=== PATIENT | female | born 1970 | race Native Hawaiian/Other Pacific Islander ===

== ENCOUNTER 2020-01-02 11:13 | Emergency (ER) | payer OTHER ==
[~2020-01-02] VITALS: Ht 160 cm; Wt 117.9 kg
[2020-01-02 11:26] VITALS: TEMP 98.9
[2020-01-02 11:59] LABS: PLATELET COUNT 294 K/uL (152-353)
[2020-01-02 12:19] LABS: POTASSIUM 3.8 mmol/L (3.6-5.2)
[2020-01-02 13:35] VITALS: BP 156/82
== END 2020-01-02 13:35 | disposition home or self-care (01) ==
LOC: ED 11:13
DX: I50.9 Heart failure, unspecified (principal); R60.0 Localized edema
CPT/HCPCS: 36415; 80053; 81000; 83880; 84484; 85027; 93005; 96374; 99284; J1940

== ENCOUNTER 2020-08-29 22:46 | Inpatient (IN) | payer OTHER ==
[~2020-08-29] VITALS: Ht 162.6 cm; Wt 136.8 kg
[2020-08-29 22:46] VITALS: BP 107/65; TEMP 98.6
[2020-08-29 23:00] VITALS: BP 113/68
[2020-08-29 23:15] LABS: PLATELET COUNT 253 K/uL (152-353)
[2020-08-29 23:22] LABS: SODIUM 137 mmol/L (136-145)
[2020-08-29 23:30] VITALS: BP 151/87
[2020-08-29] MEDS ORDERED: METF500T PO (23:43)
[2020-08-29] MEDS ORDERED: POT CL MICRO20 MEQ PO (23:44)
[2020-08-29] MEDS ORDERED: LABETALOL200 MG PO (23:46)
[2020-08-29] MEDS ORDERED: HYDRALAZINE50 MG PO (23:46)
[2020-08-29] MEDS ORDERED: NYST100016 TOP (23:47)
[2020-08-29] MEDS ORDERED: OMEPRAZOLE DR20 MG PO (23:48)
[2020-08-29] MEDS ORDERED: FURO40TA93 PO (23:49)
[2020-08-29] MEDS ORDERED: GRALISE300 MG PO (23:50)
[2020-08-29] MEDS ORDERED: AMOX875T8 PO (23:52)
[2020-08-30] VITALS (10 sets, daily range): BP systolic 113–138; BP diastolic 49–85; TEMP 97.6–99.4; Ht 162.6 cm; Wt 136.8 kg
--- NOTE | 2020-08-30 02:35 | NUR ---
08/30/2020 AT 0115 PATIENT ADMITTED TO ROOM #1123 VIA STRETCHER FROM THE ER. PATIENT IS ALERT AND ORIENTED X 4, SKIN WARM AND DRY AND IN NO ACUTE DISTRESS AT THIS TIME. PATIENT ORIENTED TO ROOM AND CALL SYSTEM AND VERBALIZES UNDERSTANDING. PATIENT STATES HER FAMILY CALLED EMS TONIGHT BECAUSE SHE "WAS EXTREMELY SHORT OF BREATH". SHE WEARS HOME OXYGEN VIA NASAL CANULA USUALLY AT 2LPM AND WHEN EMS ARRIVED AT HER HOME HER OXYGEN SATURATION WAS 58. PATIENT STATES SHES BEEN HAVING INCREASING SHORTNESS OF BREATH AND A NONE PRODUCTIVE COUGH X 2 OR 3 DAYS AND WAS SEEN BY HER PRIMARY CARE DOCTOR YESTERDAY AND GIVEN ANTIBIOTICS. PATIENTS AUNT BETTE MUÑOZ TAKES HER TO THE [facility] IN [facility] FOR HER PRIMARY CARE. PATIENT IS PRESENTLY WEARING THE VENTI MASK AT 50% AND HAS A SALINE LOCK 22G IN THE LEFT AC.
--- NOTE | 2020-08-30 02:52 | NUR ---
AT 0130 PATIENT PLACED ON TELEMTRY AND CONTINOUS PULSE OX AND RT AT BEDSIDE. PATIENT OXYGEN SATURATION READING 85-88% WITH VENTI MASK AT 50%. JOAN RESPIRATORY THERAPIST CALLED DR. JAMES IN THE ER AND ORDER WAS OBTAINED TO PLACE PATIENT ON HIGH FLOW. PATIENT PLACED ON HIGH FLOW OXYGEN AT 60 LPM AND 60% AND OXYGEN SATURATION NOW READING 92-96% AND NO ACUTE DISTRESS NOTED AT THIS TIME. CALL LIGHT WITHIN REACH. WILL CONTINUE TO MONITOR.
[2020-08-30 05:35] LABS: PLATELET COUNT 243 K/uL (152-353)
[2020-08-30 05:52] LABS: POTASSIUM 5.1 mmol/L (3.6-5.2)
--- NOTE | 2020-08-30 07:50 | NUR ---
INFORMED PER PCT PT'S BLOOD SUGAR WAS 507 WITH GLUCOMETER. WILL OBTAIN LAB VERIFICATION AND INFORM
--- NOTE | 2020-08-30 08:10 | NUR ---
DR REEDER INFORMED OF PT'S BS IOF 507. NEW ORDERS REC'D TO GIVE HUM R 15 UNITS SQ AT THIS TIME.
--- NOTE | 2020-08-30 09:00 | NUR ---
NUNU FROM LAB REPORTED BOTH OF PT'S BC WERE POSITIVE WITH E COLI WILL INFORM
--- NOTE | 2020-08-30 13:20 | NUR ---
CHECKED ON PATIENT AND SHE WAS SITTIN ON THE SIDE OF BED LOOKING OUT THE WINDOW. HER SATS WAS 92% AN HR 66.
--- NOTE | 2020-08-30 13:45 | NUR ---
DR REEDER IN ROOM AT MAKING ROUNDS. DR REEDER SPOKE WITH PT ABOUT RECIEVING REMDESEVIR IV PT STATED SHE WAS OK TO REC IT AND VERBALIZED UNDERSTANDING.
--- NOTE | 2020-08-30 14:45 | NUR ---
OBTAINED CONSENT FOR REMDESIVIR FROM PT AFTER MED WAS EXPLAINED TO PT BY DR. LILLI BURGOS RN. CONSENT SCANNED TO PHARMACY. AUBREY HELTON RN SPOKE WITH VAMSI FROM PHARM D. AWAITING APPROVAL.
--- NOTE | 2020-08-30 20:40 | NUR ---
ENTERED PATIENT'S ROOM AT THIS TIME. PATIENT RESTING QUIETLY IN BED IN LEFT SIDE LYING POSITION. HIGH FLOW NC INTACT @ 60L/MIN. RESPIRATIONS EVEN AND UNLABORED. 16FR ARRIETA INTACT AND DRAINING JOAN COLORED URINE TO BEDSIDE. 20G TO RT FA INFUSING NS @ 70ML/HR. 22G TO LEFT AC SALINE LOCKED. BOTH IV'S PATENT AND INTACT. NO ERYTHEMA OR SWELLING NOTED. PM MEDICATIONS GIVEN ALONG WITH INSULIN. BS 277 AT THIS TIME. PATIENT REPORTS OCCASIONAL ABDOMINAL SPASMS AND NAUSEA. ZOFRAN 4MG IV GIVEN PER MD ORDERS. BED LOCKED AND IN LOWEST POSITION. CALL LIGHT WITHIN EASY REACH.
[2020-08-31] VITALS: BP 120/68; TEMP 98.6
--- NOTE | 2020-08-31 03:00 | NUR ---
O2 SATURATION 86% AT THIS TIME. PATIENT HAS NC OFF. REPLACED NC AND O2 SATURATION IMPROVED TO 92%. PATIENT RESTING QUIETLY IN BED WITH EYES CLOSED. NAD NOTED. CALL LIGHT WITHIN EASY REACH.
[2020-08-31 04:00] VITALS: BP 132/77; TEMP 98.2
[2020-08-31 04:54] LABS: PLATELET COUNT 275 K/uL (152-353)
[2020-08-31 05:11] LABS: POTASSIUM 4.9 mmol/L (3.6-5.2)
[2020-08-31 08:00] VITALS: BP 134/102; TEMP 98.7
--- NOTE | 2020-08-31 08:00 | NUR ---
20G IV IN PLACE TO RFA INFUSING NS @ 70ML/HR, IV SITE INTACT WITH NO REDNESS, DRAINAGE OR SWELLING NOTED TO IV SITE. 22G SL IN PLACE TO LAC, FLUSHED WITH 10CC NS, WITH NO REDNESS, SWELLING OR DRAINAGE NOTED TO SITE.
--- NOTE | 2020-08-31 09:39 | NUR ---
DR. REEDER NOTIFIED OF BP AND BLOOD CULTURE RESULTS. NO NEW ORDERS AT THIS TIME.
--- NOTE | 2020-08-31 09:55 | NUR ---
PT SITTING UP ON SIDE OF BED TALKING TO FAMILY MEMBER ON THE PHONE. EFFORT OF BREATHING IS NOTED, BREATH SOUNDS DIMINISHED THROUGHOUT, INTERMITTENT COUGH WITH CLEAR SPUTUM NOTED. TELE # [address] WITH LEADS ATTACHED, CONTINUOUS PULSE OX IN PLACE, SATS A95% ON HIGH FLOW O2 60LPM/1OO% O2. PT VERY WINDED WITH EXERTION BUT IS ABLE TO RECOVER WELL WHEN SHE WEARS HIGH FLOW. BOWEL SOUNDS HYPOACTIVE, LAST BM REPORTED 08/28-WILL NOTIFY MD AND REQUEST STOOL SOFTENER. 16F ARRIETA IN PLACE DRAINING CLEAR, JOAN URINE TO GRAVITY. PT A/O X3. CALL LIGHT IN EASY REACH. WILL CONTINUE TO MONITOR.
--- NOTE | 2020-08-31 11:49 | NUR ---
FAMILY MEMBER IN TO ERGONOMICS ENGINEER PTS HOME MEDS.
[2020-08-31 12:00] VITALS: BP 131/69; TEMP 99
--- NOTE | 2020-08-31 12:11 | NUR ---
PT UP TO BEDSIDE VISITING WITH FAMILY MEMBER OUTSIDE WINDOW. NAD NOTED AT THIS TIME.
--- NOTE | 2020-08-31 13:30 | NUR ---
PT LAYING ON LEFT SIDE NAPPING, REMDESIVIR CONTINUES TO INFUSE W/O COMPLICATION OR SIGNS/SYMPTOMS OF ADVERSE REACTION.
[2020-08-31 16:00] VITALS: BP 146/76; TEMP 98.9
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
--- NOTE | 2020-08-31 18:36 | NUR ---
PT UP TO BEDSIDE EATING DINNER, REPORTS THAT HER TASTE IS OFF AND NOTHING REALLY TASTES GOOD.
[2020-08-31 19:56] VITALS: BP 124/74; TEMP 98.3
[2020-09-01 00:01] VITALS: BP 126/58; TEMP 98.5
--- NOTE | 2020-09-01 01:02 | NUR ---
PATIENT HAS BEEN GIVEN TEACHING ON KEEPING HER HIFLOW O2 IN HER NAIRES. PATIENT VERBALIZES UNDERSTANDING
--- NOTE | 2020-09-01 01:05 | NUR ---
PATIENT IS RESTING QUIETLY, BREATHING STEADY NON LABORED
--- NOTE | 2020-09-01 02:42 | NUR ---
PATIENT IS UP AT THE BEDSIDE, EATING
[2020-09-01 04:00] VITALS: BP 142/81; TEMP 98.6
[2020-09-01 05:31] LABS: PLATELET COUNT 290 K/uL (152-353)
[2020-09-01 05:47] LABS: POTASSIUM 4.6 mmol/L (3.6-5.2)
[2020-09-01 08:00] VITALS: BP 124/96; TEMP 98.5
--- NOTE | 2020-09-01 09:49 | NUR ---
PT SITTING ON BEDSIDE AFTER BREAKFAST, RESPIRATIONS SHALLOW, PRODUCTIVE COUGH WITH THICK, BAPTISTE SPUTUM NOTED,HIGH FLOW OXYGEN IN PLACE 50LPM/100%, PT MAINTAINS SATS ABOVE 93 WHEN AT REST. LUNG SOUNDS DIMINISHED THROUGHOUT. NS INFUSING TO 20G IN RFA AT 75ML/HR, SITE FREE FROM DRAINAGE, SWELLING AND REDNESS. 22G S/L IN LAC FLUSHED AND NOTED TO BE FREE FROM SWELLING, REDNESS OR DRAINAGE.
[2020-09-01 12:00] VITALS: BP 141/96; TEMP 98.7
--- NOTE | 2020-09-01 15:48 | NUR ---
ARRIETA CLAMPED FOR BLADDER TRAINING.
[2020-09-01 16:00] VITALS: BP 156/83; TEMP 98.3
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
[2020-09-01 20:15] VITALS: BP 145/71; TEMP 98.5
[2020-09-02 00:10] VITALS: BP 148/88; TEMP 98.6
--- NOTE | 2020-09-02 02:47 | NUR ---
SPO2 DECREASED TO 87%, INCREASED LITER FLOW TO 60 L/M. SPO2 90%
[2020-09-02 04:06] VITALS: BP 161/93; TEMP 98.5
--- NOTE | 2020-09-02 04:12 | NUR ---
DR GOMEZ ORDERED THE LOVENOX BE RETIMED FOR [address] GOMEZ ALSO ORDERED NS AT 125ML/HR. PATIENT RECIEVED TEACHING ON THE LOVENOX AND NOT TO SCRATCH AT THE SITE. PATIENT RECIEVED TEACHING WELL.
--- NOTE | 2020-09-02 04:27 | NUR ---
PATIENT STARTED COUGHING AND HER O2 SATURATION BEGAN TO DROP. I COACHED HER THROUGH SOME DEEP BREATHING BUT SHE STILL REMAINED IN THE MID 80S. RENATA FROM RESPIRATORY CAME IN AND EVALUATED HER. HE INCREESED HER 02 TO 100% ON 60l. PATIENT IS NOW SATING IN THE MID 90S
--- NOTE | 2020-09-02 04:32 | NUR ---
PATIENT HAS HAD A COMPLETE BED CHANGE
--- NOTE | 2020-09-02 05:00 | NUR ---
PATIENTS BP WENT OVER 150 SYSTOLIC. PATIENT WAS GIVEN PERSCRIBED HYDROLAZINE.
--- NOTE | 2020-09-02 05:24 | NUR ---
DECREASED LITER FLOW TO 45 L/M. SPO2 100%
[2020-09-02 05:43] LABS: POTASSIUM 4.5 mmol/L (3.6-5.2)
[2020-09-02 05:47] LABS: PLATELET COUNT 331 K/uL (152-353)
[2020-09-02 08:00] VITALS: BP 154/93; TEMP 98.1
--- NOTE | 2020-09-02 11:30 | NUR ---
IN PT RM TO ASSIST PT TO BSC, PT ABLE TO AMBULATE TO BSC INDEPENDENT BUT NEEDS HELP WITH THE TUBING AND WIRES CONNECTED TO HER, PT DESAT TO 82-89% WHILE AMBULATING TO BSC AND ON BSC DUE TO HIGH FLOW NOT STAYING IN NOSE PROPERLY WHEN MOVING, PT AMBULATED BACK TO BED SITTING UP ON SIDE OF BED, NAD NOTED, 02 SAT WENT BACK TO 95-99% ON HIGH FLOW, NO FURTHER NEEDS AT THIS TIME, CALL LIGHT WITHIN REACH, WILL CONTINUE TO MONITOR
[2020-09-02 12:00] VITALS: BP 162/94; TEMP 98.1
[2020-09-02 16:00] VITALS: BP 149/91; TEMP 98.7
--- NOTE | 2020-09-02 18:01 | NUR ---
INFORMED DR. MAGUIRE OF PT HAVING LARGE AMOUNT OF WATERY DIARRHEA AT THIS TIME, DR. MAGUIRE ORDERS TO D/C LUKAS, NO FURTHER ORDERS GIVEN
[2020-09-02 20:00] VITALS: BP 147/82; TEMP 98.3
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
--- NOTE | 2020-09-02 23:15 | NUR ---
PATIENT'S O2 SATURATION IN THE HIGH 80'S RANGE. PATIENT HAD NASAL CANNULA OFF. RE-ATTACHED AND PATIENT'S O2 LEVEL BACK TO WNL.
[2020-09-03 00:03] VITALS: BP 152/86; TEMP 98.7
--- NOTE | 2020-09-03 02:30 | NUR ---
PATIENT REQUESTING ASSISTANCE. SHE IS SITTING UP ON THE SIDE OF THE BED. SHE HAD URINATED ON THE BED AND THE FLOOR. SHE STATES, "I COULDN'T MAKE IT TO THE TOLIET." SHE STATES THAT THIS HAPPENS FREQUENTLY AT HOME WHERE SHE IS UNABLE TO MAKE IT TO THE BATHROOM IN TIME. SHE NORMALLY WEARS PULL-UPS. PCT CHANGED BED LINENS. PATIENT SITTING UP ON SIDE OF THE BED ON HER PHONE. HIGH FLOW NC INTACT. NAD NOTED. CALL LIGHT WITHIN REACH.
[2020-09-03 04:00] VITALS: BP 158/89; TEMP 98.6
--- NOTE | 2020-09-03 05:48 | NUR ---
PATIENT REQUESTING SOMETHING FOR H/A. TYLENOL 65OMG GIVEN. IV SITE TO RIGHT FA SLIGHTLY RED. NO SWELLING NOTED. NS INFUSING @ 50ML/HR. PT DOES NOT C/O PAIN AT THAT SITE. PATIENT SITTING UP ON SIDE OF BED ON HER PHONE. O2 SATURATION 98% WITH HF NC INTACT. CALL LIGHT WITHIN EASY REACH.
[2020-09-03 08:00] VITALS: BP 133/74; TEMP 98.1
[2020-09-03 11:19] LABS: PLATELET COUNT 349 K/uL (152-353)
--- NOTE | 2020-09-03 11:20 | NUR ---
IN PT RM DUE TO PT O2 SAT SHOWING AT 87%, PT SITTING UP ON THE SIDEOF BED EATING BREAKFAST, HIGH FLOW NC WAS NOT PROPERLY IN NOSE, READJUSTED NC AT THIS TIME, PT STATES SHE IS TIRED AND WEAK THIS AM, NAD NOTED, O2 SAT RAISED TO 90%, NO FURTHER NEEDS AT THIS TIME, WILL CONTINUE TO MONITOR, CALL LIGHT WITHIN REACH
[2020-09-03 12:00] VITALS: BP 120/75; TEMP 101.1
[2020-09-03 16:00] VITALS: BP 145/77; TEMP 98.9
--- NOTE | 2020-09-03 16:20 | NUR ---
IN PT RM TO ADMINISTER NOVOLIN R FOR BS 238, PT LYING ON RT SIDE, NAD NOTED, PT STATES SHE HAS A HEADACHE AND RATES HER PAIN AT A 8 ON A 0-10 PAIN SCALE, WILL ADMINISTER TYLENOL AND REASSES PAIN, 02 SAT AT 100% ON HIGH FLOW NC, NO FURTHER NEEDS AT THIS TIME, PT STATES SHE IS GOING TO TRY AND SLEEP UNTIL DINNER COMES, CALL LIGHT WITHIN REACH
--- NOTE | 2020-09-03 17:20 | NUR ---
SPOKE TO DR. MAGUIRE REGARDING PT HAVING GENERALIZED BODY PAIN, DR. MAGUIRE STATES TO ORDER NORCO 5MG Q6 PRN FOR PAIN, NO FURTHER ORDERS GIVEN AT THIS TIME
--- NOTE | 2020-09-03 17:30 | NUR ---
RESPONDED TO PT'S RM DUE TO CALL LIGHT AND PT 02 SAT SHOWING 78% ON MONITOR, PT CURRENTLY SITTING ON THE BSC WITH HIGH FLOW NC COMING OUT OF NOSE, PT REMOVED NC DUE TO IT COMING OFF, I REPLACED NC AND O2 SAT WENT TO 85%, PT AMBULATED BACK TO BED SITTING UP ON SIDE OF BED, LABORED BREATHING NOTED, O2 SAT NOW AT 92% AND MAINTAINING, NO FURTHER NEEDS AT THIS TIME, WILL REASSES
--- NOTE | 2020-09-03 18:22 | NUR ---
PT STATES THAT SHE HAS NOT BEEN ABLE TO EAT MUCH OF LUNCH OR DINNER DUE TO THE FOOD IRRITATING HER STOMACH, NOTIFIED DR. MAGUIRE OF PT'S CONCERNS HE STATES IT IS OK TO CHANGE HER DIET TO BLAND AT THIS TIME, NO FURTHER ORDERS AT THIS TIME
[2020-09-03 20:00] VITALS: BP 104/66; TEMP 99.2
--- NOTE | 2020-09-03 21:00 | NUR ---
ENTERED PATIENT'S ROOM AT THIS TIME. PATIENT RESTING QUIETLY IN BED. HIGH FLOW NC INTACT. NAD NOTED. 20G TO RIGHT FA PATENT AND INTACT. NO TENDERNESS OR SWELLING NOTED. NS INFUSING @ 50ML/HR. PATIENT DENIES PAIN OR OTHER COMPLAINTS AT THIS TIME. BED LOCKED AND IN LOWEST POSITION. CALL LIGHT AND BEDSIDE TABLE WITHIN EASY REACH.
--- NOTE | 2020-09-03 23:00 | NUR ---
PATIENT UP TO BSC AT THIS TIME. OXYGEN SATURATION NOW AROUND 85%. ENCOURAGED SLOW, DEEP BREATHS. O2 SATS IMPROVED UNTIL PATIENT TRANSFERRED BACK TO BED. IS EXERCISES PERFORMED WELL COMBIVENT INHALER. INSTRUCTED TO COUGH AND DEEP BREATHE. O2 SATS DID IMPROVE SLOWLY (AROUND 91%). PATIENT DOES NOT SEEM TO BE IN DISTRESS. SHE WAS ASKING FOR SOMETHING TO EAT WHILE HER O2 SATS WERE IN THE MID-80'S. PATIENT SITTING UP ON THE SIDE OF THE BED ON HER PHONE. BED LOCKED AND IN LOWEST POSITION. CALL LIGHT WITHIN EASY REACH.
[2020-09-04] VITALS: BP 112/66; TEMP 98.5
--- NOTE | 2020-09-04 03:00 | NUR ---
PATIENT'S O2 SATURATION CONTINUES TO FLUCTUATE FROM LOW TO MID 80'S TO LOW 90'S. PATIENT IS CURRENTLY RESTING IN BED WITH EYES CLOSED. NO ACUTE RESPITORY DISTRESS NOTED. INSTRUCTED TO LYING ON HER SIDE TO IMPROVE O2 LEVELS. WORKED ON IS. CURRENT HIGH FLOW SETTINGS 40L/MIN @ 60%. O2 SLOWLY IMPROVING. CALL LIGHT WITHIN EASY REACH OF PATIENT.
[2020-09-04 04:00] VITALS: BP 116/69; TEMP 98.2
--- NOTE | 2020-09-04 06:15 | NUR ---
PATIENT SITTING UP ON SIDE OF BED ON CELL PHONE. HIGH FLOW NC INTACT. CURRENT O2 SATURATION IS 96%. SHE DENIES ANY CONCERNS OR COMPLAINTS AT THIS TIME. 20G TO RIGHT FA PATENT AND INTACT. NS CONTINUES TO INFUSE AT 50ML/HR. NAD NOTED. CALL LIGHT WITHIN EASY REACH OF PATIENT.
[2020-09-04 06:37] LABS: PLATELET COUNT 322 K/uL (152-353)
[2020-09-04 07:18] LABS: POTASSIUM 4.5 mmol/L (3.6-5.2)
[2020-09-04 08:00] VITALS: BP 147/77; TEMP 99.3
--- NOTE | 2020-09-04 08:07 | NUR ---
PT SITTING UP ON BEDSIDE, DESATS WHEN COUGHING OR TALKING ON THE PHONE. PT ON HI FLOW 35L/80%. PT DENIES PAIN AT THIS TIME. CALL LIGHT IN EASY REACH. WILL CONTINUE TO MONITOR.
--- NOTE | 2020-09-04 08:24 | NUR ---
PT LAYING IN BED IN NAD, DENIES CP BUT STATES SHE IS HAVING "ALLERGY ISSUES" CAUSING HER TO BE SOB. IRREGULAR HR NOTED, PT PLACED ON O2 VIA NC AT 2LPM. VS 75P, 18 RR, 146/79 BP.
--- NOTE | 2020-09-04 09:14 | NUR ---
DR. MAGUIRE NOTIFIED OF HEART RHYTHM ABNORMALITY AND PT BEING PLACED ON O2.
--- NOTE | 2020-09-04 09:44 | NUR ---
DROPPED HIGH FLOW TO 60%, IF TOLERATED. SATS 90-91% AT THIS TIME
--- NOTE | 2020-09-04 09:57 | NUR ---
PT DESATS TO LOW 80'S - RT AND NURSE TO BEDSIDE. FLOW ADJUSTED- PT RECOVERS.
--- NOTE | 2020-09-04 11:23 | NUR ---
DROPPED O2 FROM 60% TO 55% AND SATS ARE 91%
--- NOTE | 2020-09-04 11:24 | NUR ---
PT LAYING IN BED WATCHING TV, DENIES CP AT THIS TIME. CALL LIGHT IN EASY REACH. WILL CONTINUE TO MONITOR.
--- NOTE | 2020-09-04 11:26 | NUR ---
PATIENT WORKING WITH ACEPELLA AND SITTING ON SIDE OF BED.
[2020-09-04 12:00] VITALS: BP 131/63; TEMP 98.5
--- NOTE | 2020-09-04 12:17 | NUR ---
PT DESATS ON HIGH FLOW 35L/65% TO LOW- MID 80'S. RT TO ROOM TO INCREASE FLOW TO 35L/65%, SATS IMPROVE TO LOW 90'S.
--- NOTE | 2020-09-04 13:02 | NUR ---
PT CO NAUSEA-4MG ZOFRAN ADMIN SIVP.
--- NOTE | 2020-09-04 13:08 | NUR ---
PT GIVEN SNACK ON REQUEST, DENIES CP. IN NAD AT THIS TIME.
--- NOTE | 2020-09-04 15:00 | NUR ---
20G IV TO RFA INFILTRATED- DC WITH TIP INTACT. UNSUCCESSFUL STICK X3 WITH 22G PER TRADE ANALYST.
--- NOTE | 2020-09-04 15:14 | NUR ---
SATS DROP TO LOW-MID 80'S ON HIGH FLOW 35L/65%- RT NOTIFIED, FLOW INCREASED TO 35L/100%, SATS IMPROVE TO ABOVE 90%.
--- NOTE | 2020-09-04 15:18 | NUR ---
DR. MAGUIRE NOTIFIED OF CONDITION CHANGE, TORBV FOR 40M LASIX IV X 1DOSE AND TO RESTART DEXAMETHASONE 4MG IV BID.
--- NOTE | 2020-09-04 15:30 | NUR ---
BACK TO 60 LPM/100% SATS DROPPING
--- NOTE | 2020-09-04 15:35 | NUR ---
22G IV STARTED TO RAC BY Francis HELMS RN.
--- NOTE | 2020-09-04 15:38 | NUR ---
4MG DEXAMETHASONE ADMIN SIVP X 1 DOSE PER CODING COMPLIANCE AUDITOR. 40MG LASIX ADMIN SIVP AT THIS TIME.
[2020-09-04 16:00] VITALS: BP 125/94; TEMP 99.2
--- NOTE | 2020-09-04 17:07 | NUR ---
PT DENIES ACUTE DISTRESS OR NEEDS AT THIS TIME. CALL LIGHT IN EASY REACH. WILL CONTINUE TO MONITOR.
--- NOTE | 2020-09-04 18:04 | NUR ---
TORBV DR. MAGUIRE-TIGIST TO SALINE LOCK PT.
--- NOTE | 2020-09-04 18:38 | NUR ---
PT SITTING UP TO BEDSIDE, IN NAD AT THIS TIME, PT STATES SHE FEELS BETTER.
[2020-09-04 20:00] VITALS: BP 121/59; TEMP 98.5
[2020-09-05 00:20] VITALS: BP 150/76; TEMP 98.4
--- NOTE | 2020-09-05 01:55 | NUR ---
PATIENT IN LOW FOWLERS POSITION RESTING WITH EYES CLOSED. NAD NOTED WITH PATIENT AT THIS TIME.
--- NOTE | 2020-09-05 03:15 | NUR ---
RESPIRATORY AT BEDSIDE. PATIENT'S HIGH FLOW SETTINGS ARE AT 60LPM AND FIO2 85%.
[2020-09-05 04:00] VITALS: BP 120/56; TEMP 97.7
--- NOTE | 2020-09-05 04:08 | NUR ---
PATIENT RESTING IN BED WITH EYES CLOSED IN LOW FOWLERS POSITION. PATIENT REMAINS ON HIGH FLOW WITH SETTINGS OF 60LPM AND FIO2 85%, PATIENT TOLERATING SETTINGS AT THIS TIME.
[2020-09-05 07:45] LABS: PLATELET COUNT 390 K/uL (152-353)
[2020-09-05 07:46] LABS: POTASSIUM 4.5 mmol/L (3.6-5.2)
[2020-09-05 08:00] VITALS: BP 153/87; TEMP 98.3
--- NOTE | 2020-09-05 08:11 | NUR ---
PT UP TO BEDSIDE, A/O X3, IN NAD, HIFLOW O2 IN PLACE VIA NC AT 60L/85%, SATS ABOVE 95. PT REPORTS FEELING BETTER TODAY, WORK OF BREATHING CONSIDERABLY LESS THAN YESTERDAY, PT APPEARS MORE ALERT THAN YESTERDAY, STATES SHE IS LOOKING FORWARD TO GOING HOME AND SITTING ON HER PORCH. PT DENIES PAIN AT THIS TIME, IS ABLE TO TRANSFER TO BSC PER SELF, WITH OCCASIONAL PERIODIC INCONTINENCE WHEN COUGHING. INTERMITTENT, PRODUCTIVE COUGH NOTED WITH THINNER WHITE AND CLEAR SPUTUM THAN YESTERDAY. PT ACTIVE WITH USING ACAPPELLA AND I/S, IS ABLE TO PULL 1000 THEN 800. 22G SL IN PLACE TO RAC POSITIONAL BUT FLUSHES WELL. 1P AUTOMOBILE ACCESSORIES SALESPERSON EDEMA NOTED TO BLE. BOWEL SOUNDS PRESENT X4 WITH LAST BM REPORTED 09/03. CALL LIGHT IN EASY REACH. WILL CONTINUE TO MONITOR.
--- NOTE | 2020-09-05 10:21 | NUR ---
PT UP TO BSC TO VOID-IN NAD AT THIS TIME, CALL LIGHT IN EASY REACH.WILL CONTINUE TO MONITOR.
[2020-09-05 12:00] VITALS: BP 156/89; TEMP 98.3
--- NOTE | 2020-09-05 12:11 | NUR ---
PT ACCEPTS LUNCH TRAY AND TOLERATES 100%. NO CHANGE IN STATUS AT THIS TIME. CALL LIGHT IN EASY REACH.
--- NOTE | 2020-09-05 13:39 | NUR ---
CHRISTOS FROM PT IN TO SEE PT AND PERFORM CPT.
--- NOTE | 2020-09-05 13:40 | NUR ---
SHANTELL SHER IN PT- PT ACCEPTED AND TOLERATED CPT WELL.
[2020-09-05 16:00] VITALS: BP 126/80; TEMP 98.8
--- NOTE | 2020-09-05 16:57 | NUR ---
PTS BLOOD GLUCOSE 404- DR. MAGUIRE NOTIFIED- TORBV TO COVER WITH 10U REG INSULIN NOW AND RECHECK IN ONE HOUR.
--- NOTE | 2020-09-05 18:04 | NUR ---
OTBS RECHECK 322- WILL COVER WITH SSP.
--- NOTE | 2020-09-05 19:50 | NUR ---
PT IS SITTING UP ON THE SIDE OF THE BED WITH PT'S PHONE IN HAND. PT. SEEMS TO BE IN NO DISTRESS. PT REACTIVE TO VERBAL AND TACTILE STIMULI AT THIS TIME.
[2020-09-05 20:22] VITALS: BP 129/70; TEMP 98.6
--- NOTE | 2020-09-05 20:41 | NUR ---
DECREASED FIO2 TO 60% SPO2 97%
--- NOTE | 2020-09-05 21:32 | NUR ---
DECREASED LITER FLOW TO 50 L/M
--- NOTE | 2020-09-05 22:58 | NUR ---
ATIVAN 1 MG GIVEN AT THIS TIME DUE TO ANXIOUS BEHAVIOR.
[2020-09-06] VITALS (7 sets, daily range): BP systolic 120–158; BP diastolic 56–93; TEMP 98.1–98.9
[2020-09-06 07:43] LABS: PLATELET COUNT 414 K/uL (152-353)
[2020-09-06 08:01] LABS: POTASSIUM 4.3 mmol/L (3.6-5.2)
--- NOTE | 2020-09-06 09:57 | NUR ---
PT CHANGED FIOW 45% AND LITER FLOW IS STILL AT 50.PT SEEMS TO BE DOING WELL WITH CHANGE SHE IS HOLDING HER SPO2 IN LOW TO MID NINETIES. THIS WAS CHAGED AT 1015.
--- NOTE | 2020-09-06 14:29 | NUR ---
NOTIIED FSBS 515 NEW ORDERS GIVEN FOR 10 UNITS REGULAR INSULIN AND REPEAT FSBS IN 1 HOUR AND COVER AGAIN PER SSI.
--- NOTE | 2020-09-06 15:37 | NUR ---
OTBS 456- DR. MAGUIRE NOTIFIED- VO TO COVER ADDITIONAL 10U NOW.
--- NOTE | 2020-09-06 16:18 | NUR ---
DIABETIC EDUCATION PROVIDED. PT DEMONSTRATED HOW TO USE GLUCOMETER.
--- NOTE | 2020-09-06 18:38 | NUR ---
LOWERED LITER FLOW TO 40 L/M.
--- NOTE | 2020-09-06 21:05 | NUR ---
PM PO AND IV MEDICATIONS GIVEN TO PT. AT THIS TIME. ALBUTEROL TREATMENT GIVEN AT THIS TIME. EDUCATION WAS PROVIDED ON IMPORTANCE OF INCENTIVE SPIROMETER USAGE. PT INHALED 500 ON INCENTIVE SPIROMETER. PT WAS LETHARGIC DURING INTERVENTIONS AND ACTIVITIES. PT DENIES ANY PAIN OR CONCERNS AT THIS TIME.
--- NOTE | 2020-09-06 23:05 | NUR ---
UNSUCCESSFULLY ATTEMPTED TO RETURN MS. AMOS'S CALL AND PROVIDE AN UPDATE ON PATIENT AT THE FOLLOWING TIMES ON THIS DATE: 2242, 2245, 2246 AND 2302. WHILE ATTEMPTING TO CALL THE NUMBER PROVIDED , LINE REMAINED BUSY.
--- NOTE | 2020-09-07 02:30 | NUR ---
SETUP SUPPLIES FOR PT TO GIVE HERSELF A BATH AT THIS TIME ON THE BED SIDE COMMODE. LINENS WERE CHANGED AT THIS TIME. PT DENIES ANY DISCOMFORT OR PAIN AFTER BATH.
[2020-09-07 03:33] VITALS: BP 111/62; TEMP 98.9
[2020-09-07 04:54] LABS: PLATELET COUNT 419 K/uL (152-353)
[2020-09-07 04:58] LABS: POTASSIUM 4.5 mmol/L (3.6-5.2)
[2020-09-07 08:00] VITALS: BP 166/89; TEMP 98.5
--- NOTE | 2020-09-07 11:00 | NUR ---
PT SITTING UP ON SIDE OF BED WORKING ON A WORD SEARCH, NAD NOTED, NONLABORED BREATHING, PT NOW ON VENTI MASK AT 50% 02 WITH O2 SAT MAINTAINING AT 97%, PT HAS NO NEEDS AT THIS TIME, WILL CONTINUE TO MONITOR, CALL LIGHT WITHIN REACH
--- NOTE | 2020-09-07 11:00 | NUR ---
CHANGED TO VENTI MASK TO 50% TO SEE IF PATIENT TOLERATES. HER SATS ARE 93% AT THIS TIME.
[2020-09-07 12:00] VITALS: BP 135/63; TEMP 97.9
--- NOTE | 2020-09-07 13:19 | NUR ---
CHANGED PATIENT TO NC AT 5 LPM AND PATIENT SATING 93% AND SITTING ON SIDE OF BED.
--- NOTE | 2020-09-07 13:28 | NUR ---
RT FRANCIE CHANGED PT TO NC ON 5L, PT O2 SAT MAINTAING AT 97% WHILE PT SITTING UP ON THE SIDE OF BED EATING LUNCH, NAD NOTED, NO NEEDS AT THIS TIME, CALL LIGHT WITHIN REACH, WILL CONTINUE TO MONITOR
--- NOTE | 2020-09-07 14:31 | NUR ---
O2 DECREASED TO 3.5L PER NC PER RESP REQUEST. PT RESTING AT THIS TIME IN BED IN HIGH FLOWER'S POSITION, CHRISTOS FROM THERAPY IN ROOM AT AT THIS TIME.
--- NOTE | 2020-09-07 15:26 | NUR ---
IN PT RM DUE TO O2 SAT READING BETWEEN 82-85% ON MONITOR, PT SITTING UP ON SIDE OF BED, NAD NOTED, PT STATES SHE DOES NOT FEEL SHORT OF BREATH, O2 MOVED BACK TO 5L VIA NC AT THIS TIME PT 02 SAT RAISED TO 92%, WILL REEVALUATE, NO FURTHER NEEDS AT THIS TIME, WILL CONT. TO MONITOR, CALL LIGHT WITHIN REACH
[2020-09-07 16:00] VITALS: BP 175/107; TEMP 98.5
--- NOTE | 2020-09-07 16:29 | NUR ---
IN PT RM DUE TO O2 SAT SHOWING 78% ON MONITOR, PT SITTING ON SIDE OF BED, PT STATES SHE GOT UP AND USED THE BSC AND GOT BACK ON THE BED, PT O2 SAT NOW AT 96% WHILE PT SITTING ON SIDE OF BED, NAD NOTED, NO NEEDS AT THIS TIME, WILL CONTINUE TO MONITOR
--- NOTE | 2020-09-07 18:20 | NUR ---
RECHECKED PT BP AFTER ADMINISTRATION OF LABETALOL, BP NOW 165/69, NAD NOTED, BP MEDS SHEDULED TO BE GIVEN AT 2100, NO FURTHER NEEDS AT THIS TIME, WILL CONTINUE TO MONITOR, PT O2 SAT REMAINING AT 92-97% ON 5L NC WHILE PT IS SITTING UP ON THE SIDE OF THE BED
--- NOTE | 2020-09-07 19:51 | NUR ---
PATIENT PERFORMED ACAPELLA WELL.
[2020-09-07 20:00] VITALS: BP 152/69; TEMP 98.6
[2020-09-08] VITALS: BP 129/50; TEMP 98
[2020-09-08 04:00] VITALS: BP 180/78; TEMP 98.3
[2020-09-08 05:37] LABS: PLATELET COUNT 389 K/uL (152-353)
[2020-09-08 08:00] VITALS: BP 126/66; TEMP 98.2
--- NOTE | 2020-09-08 08:33 | NUR ---
FRANCIE IN RESPIRATORY TURNED PT O2 DOWN TO 3L AT 0735 THIS AM, PT CURRENTLY MAINTAINING O2 SAT AT 95-98%, NAD NOTED, WILL CONTINUE TO MONITOR
[2020-09-08 12:00] VITALS: BP 116/44; BP 121/60; TEMP 97.8; TEMP 98.2
[2020-09-08 16:00] VITALS: BP 147/87; TEMP 97.9
--- NOTE | 2020-09-08 17:30 | NUR ---
DC INSTRUCTIONS GIVEN AND EXPLAINED TO PT, PT VERBALIZED UNDERSTANDING, [facility] OFF[facility] IN [place] WILL CALL PT FOR FOLLOWUP APPT NEXT WEEK, PT STATES SHE KNOWS HOW TO ADMINISTER THE INSULIN DETEMIR SUBCUTANEOUS, DR. MAGUIRE STATES PRIMARY CARE WILL FOLLOWUP CARE FOR PT HAVING HIGH BLOOD SUGAR, IV REMOVED FROM LT SHOULDER WITH CATHETER INTACT
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
--- NOTE | 2020-09-10 18:21 | NUR ---
PATIENT CALLED AND STATED SHE WAS OUT OF HER INSULIN AND DID NOT HAVE ANY MORE OF THE INSULIN TO TAKE AND WHEN SHE CHECKED WITH [facility] THEY DID NOT HAVE HER NEW RX. PATIENT WANTED US TO CALL INSULIN- LEVEMIR FLEXTOUCH 25 UNITS SUBQ BID TO [facility] IN [place], [place]. MEDICATION CALLED IN AT THIS TIME.
== END 2020-09-08 18:00 | disposition home or self-care (01) | DRG 177 ==
LOC: ED 22:46 → MED/SURG 08-30 00:30
PROVIDERS: Internal Medicine Endocrinology, Diabetes & Metabolism; ADMIT Family Medicine; ATTEND Internal Medicine
DX: U07.1 COVID-19 (principal); J96.21 Acute and chronic respiratory failure with hypoxia; N17.8 Other acute kidney failure; J44.0 Chronic obstructive pulmonary disease with (acute) lower respiratory infection; J18.8 Other pneumonia, unspecified organism; E13.9 Other specified diabetes mellitus without complications; K21.9 Gastro-esophageal reflux disease without esophagitis; I11.0 Hypertensive heart disease with heart failure; I50.9 Heart failure, unspecified; E66.01 Morbid (severe) obesity due to excess calories; Z68.43 Body mass index [BMI] 50.0-59.9, adult
CPT/HCPCS: 36415; 36600; 51702; 80053; 82550; 82805; 82947; 83880; 84484; 85007; 85027; 87635; 93005; 94667; 94668; 94760; 96374; 96375; 99284; J0360; J0456; J1100; J1650; J1815; J1940; J2060; J2405; J2930; J3490; U0003

== ENCOUNTER 2020-10-26 18:10 | Emergency (ER) | payer OTHER ==
[~2020-10-26] VITALS: Ht 162.6 cm; Wt 141.1 kg
[~2020-10-26 18:10] MED LIST: AMOX875T8 PO; FURO40TA93 PO; GRALISE300 MG PO; HYDRALAZINE50 MG PO; LABETALOL200 MG PO; METF500T PO; NYST100016 TOP; OMEPRAZOLE DR20 MG PO; POT CL MICRO20 MEQ PO
[2020-10-26 18:47] LABS: PLATELET COUNT 245 K/uL (152-353)
[2020-10-26 18:56] LABS: POTASSIUM 3.9 mmol/L (3.6-5.2); SODIUM 139 mmol/L (136-145)
[2020-10-26 21:20] VITALS: BP 157/75; TEMP 98.8
== END 2020-10-26 21:16 | disposition home or self-care (01) ==
LOC: ED 18:10
PROVIDERS: Emergency Medicine Emergency Medical Services
DX: R07.89 Other chest pain (principal)
CPT/HCPCS: 36415; 80053; 84484; 85027; 93005; 99284

== ENCOUNTER 2021-11-29 10:55 | Outpatient (CLI) | payer OTHER ==
[2021-11-29 11:19] LABS: PLATELET COUNT 271 K/uL (152-353)
[2021-11-29 11:23] LABS: POTASSIUM 3.8 mmol/L (3.6-5.2)
== END 2021-11-29 19:01 | disposition home or self-care (01) ==
LOC: LABW 10:55
PROVIDERS: ATTEND Specialist
DX: R94.39 Abnormal result of other cardiovascular function study (principal); R07.89 Other chest pain
CPT/HCPCS: 36415; 80048; 85027

== ENCOUNTER 2021-12-06 08:14 | Outpatient (CLI) | payer OTHER ==
[2021-12-06 08:44] LABS: POTASSIUM 3.9 mmol/L (3.6-5.2)
== END 2021-12-06 18:57 | disposition home or self-care (01) ==
LOC: LABW 08:14
PROVIDERS: ATTEND Specialist
DX: R94.39 Abnormal result of other cardiovascular function study (principal); R07.89 Other chest pain
CPT/HCPCS: 36415; 80048